=== PATIENT | male | born 1965 | race Caucasian/White ===

== ENCOUNTER 2017-01-12 21:34 | Emergency (ER) | payer OTHER, MEDICARE | END 2017-01-13 00:40 | disposition home or self-care (01) | LOC: FER 21:34 | DX: S46.911A Strain of unspecified muscle, fascia and tendon at shoulder and upper arm level, right arm, initial encounter (principal); M25.571 Pain in right ankle and joints of right foot; I10 Essential (primary) hypertension; J44.9 Chronic obstructive pulmonary disease, unspecified; G40.909 Epilepsy, unspecified, not intractable, without status epilepticus; Z88.0 Allergy status to penicillin; Z88.1 Allergy status to other antibiotic agents; Z88.2 Allergy status to sulfonamides; Z88.8 Allergy status to other drugs, medicaments and biological substances; Z79.899 Other long term (current) drug therapy; W07.XXXA Fall from chair, initial encounter | CPT/HCPCS: 73030; 73610; 99283 ==